=== PATIENT | female | born 1955 | race Hispanic/Latino ===

== ENCOUNTER 2016-09-08 15:23 | Emergency (ER) | payer BC ==
[2016-09-08 17:38] VITALS: BP 115/83
[2016-09-08] MEDS ORDERED: NACL 0.9% 1000 ML 1,000 ML IV ONE (17:44)
[2016-09-08 18:33] LABS: Bilirubin,Urine NEG (Negative); Blood,Urine SM (Negative); Ketones,Urine NEG (Negative); Leukocyte Esterase,Urine NEG (Negative); Nitrite,Urine NEG (Negative); Protein,Urine <15 mg/dL mg/dL (Negative); Urobilinogen,Urine < 2.0 mg/dL (<2.0)
[2016-09-08 18:42] LABS: Basophils % (Auto) 0.4 % (0.0-1.8); Hematocrit 37.9 % (30.3-42.9); Hemoglobin 12.5 gm/dl (10.1-14.3); Mean Corpuscular HGB Conc 33 % (30-34); Mean Corpuscular Hemoglobin 31 pg (28-32); Mean Corpuscular Volume 95 fl (79-97); Platelet Count 290 K/mm3 (140-440); Red Blood Count 4.01 M/mm3 (3.65-5.03); White Blood Count 7.9 K/mm3 (4.5-11.0)
[2016-09-08] MEDS ORDERED: ZOFRAN IV ONE (18:45)
[2016-09-08] MEDS ORDERED: TORADOL IV ONE (18:45)
--- NOTE | 2016-09-08 18:48 | Emergency Department Report ---
ED General Adult HPI - General Chief complaint: Urogenital-Female Stated complaint: DIZZY/SYNCOPE Time Seen by Provider: 09/08/16 18:24 Source: patient Mode of arrival: Stretcher Limitations: No Limitations - History of Present Illness Initial comments: 61-year-old female with history of recurrent UTIs last several months presented today because of a syncopal episode. Patient states that she had a week long hospitalization in an outside hospital and was released 10 days ago where she was told she had urosepsis. States that she has had multiple UTIs in the recent past and has been on a lot of different antibiotics. Today she was following up with a urologist because she states that she has occasional urinary retention and is frequently UTIs. When she arrived to the store protection specialist's office she was having significant suprapubic pain similar to her prior cystitis , she got out of car and went to the office and felt lightheaded, anxious, and pain and then syncopized. States she is also not been drinking much in terms of fluids because she feels nauseous because of her pain. She was not evaluated by the urologist and was brought to the ER because syncope. Severity scale (0 -10): 9 - Related Data Previous Rx's Medication Instructions Recorded Last Taken Type Ibuprofen [Motrin] 600 mg PO Q8H PRN #16 tablet 09/08/16 Unknown Rx Allergies Allergy/AdvReac Type Severity Reaction Status Date / Time codeine AdvReac Vomiting Verified 09/08/16 17:40 ED Review of Systems ROS: Stated complaint: DIZZY/SYNCOPE Other details as noted in HPI Comment: All other systems reviewed and negative Constitutional: denies: chills, fever Respiratory: denies: cough, shortness of breath Cardiovascular: denies: chest pain Gastrointestinal: nausea. denies: abdominal pain, vomiting Genitourinary: other (decreased urination) Skin: denies: rash ED Past Medical Hx - Past Medical History Previous Medical History?: Yes Additional medical history: chronic UTIs. Urosepsis - Surgical History Past Surgical History?: Yes Hx Cholecystectomy: Yes Additional Surgical History: hysterectomy - Social History Smoking Status: Current Every Day Smoker Substance Use Type: None - Medications Home Medications: Home Medications Medication Instructions Recorded Confirmed Last Taken Type Ibuprofen [Motrin] 600 mg PO Q8H PRN #16 tablet 09/08/16 Unknown Rx ED Physical Exam - General Limitations: No Limitations General appearance: alert - Head Head exam: Present: atraumatic - Eye Eye exam: Present: normal appearance - Respiratory Respiratory exam: Present: normal lung sounds bilaterally. Absent: respiratory distress - Cardiovascular Cardiovascular Exam: Present: regular rate, normal rhythm - GI/Abdominal GI/Abdominal exam: Present: soft, other (moderate suprapubic tenderness). Absent: distended - Extremities Exam Extremities exam: Present: normal inspection - Neurological Exam Neurological exam: Present: alert, oriented X3 - Psychiatric Psychiatric exam: Present: depressed, agitated, anxious, other (tearful) - Skin Skin exam: Present: intact ED Course Vital Signs 09/08/16 09/08/16 17:33 17:41 Temperature 98 F 98 F Pulse Rate 88 88 Respiratory 16 16 Rate Blood Pressure 115/83 Blood Pressure 115/83 [Right] O2 Sat by Pulse 96 96 Oximetry - Reevaluation(s) Reevaluation #1: 09/08/16 19:52 Patient is wanting to leave. I went and talked to the patient and she states that we did nothing for her. I explained to her that we had done her labs as well as urinalysis and she received a Iraheta catheter for her comfort and she had also received Toradol. Patient had taken out her own urinary catheter and wanted to leave. I explained to her that the results did not show any acute urinary tract infection. I offered her more pain medication however she wanted to leave now. Reevaluation #2: 09/08/16 19:57 Patient left the ER prior to receiving her paperwork, lab results and prescription. However despite I had discussed with her her lab results before she left. ED Medical Decision Making - Lab Data Result diagrams: 09/08/16 18:14 09/08/16 18:14 Critical care attestation.: If time is entered above; I have spent that time in minutes in the direct care of this critically ill patient, excluding procedure time. ED Disposition Clinical Impression: Chronic suprapubic pain Disposition: DISCHARGED TO HOME OR SELFCARE Is pt being admited?: No Does the pt Need Aspirin: No Condition: Stable Instructions: Chronic Urinary Retention in Women (ED), Abdominal Pain (ED) Additional Instructions: Please follow up with your primary care doctor or neurologist in the next 3-5 days. Return to the emergency room he have any fever, worsening pain or any new symptoms. Prescriptions: Ibuprofen [Motrin] 600 mg PO Q8H PRN #16 tablet PRN Reason: Pain Referrals: PRIMARY CARE,MD [Primary Care Provider] - 3-5 Days Time of Disposition: 19:53
[2016-09-08 18:52] LABS: INR 0.95 (0.87-1.13)
[2016-09-08 19:07] LABS: Alanine Aminotransferase 10 units/L (7-56); Albumin 4.5 g/dL (3.9-5); Albumin/Globulin Ratio 1.3 %; Alkaline Phosphatase 79 units/L (35-129); Anion Gap 17 mmol/L; BUN/Creatinine Ratio 13.75; Bilirubin,Total 0.3 mg/dL (0.1-1.2); Blood Urea Nitrogen 11 mg/dL (7-17); Calcium 9.5 mg/dL (8.4-10.2); Carbon Dioxide 25 mmol/L (22-30); Chloride 103.1 mmol/L (98-107); Glucose 101 mg/dL (65-100); Potassium 4.2 mmol/L (3.6-5.0); Sodium 141 mmol/L (137-145); Total Protein 7.9 g/dL (6.3-8.2)
== END 2016-09-08 20:06 | disposition home or self-care (01) ==
LOC: ED 15:23
DX: R10.2 Pelvic and perineal pain (principal); G89.29 Other chronic pain; F17.200 Nicotine dependence, unspecified, uncomplicated; Z88.5 Allergy status to narcotic agent
CPT/HCPCS: 36415; 51702; 80053; 81001; 82140; 82805; 85025; 85610; 87040; 87086; 93005; 93010; 96361; 96374; 96375; 99284; J1885; J2405; J7030